=== PATIENT | female | born 1995 | race Caucasian/White ===

== ENCOUNTER → 2017-07-19 | Outpatient (CLI) | payer OTHER, MEDICAID ==
[~2017-07-19] MED LIST: ACE3 PO; ACE325 PO; ACEC5L PO; ALB0.5 INH; AMO250 PO; AMO400L PO; AMOX-559 PO; ATOM40CA7 PO; AUG500 PO; CEFU250T11 PO; CETI10CA8 PO; CLO5 PO; CLOB20TA PO; CLON-303 PO; CLON0.255 PO; CLONIPIN; CONCERTA PO; ESTR-28 PO; FLU20 PO; FLU60SYR30 IM ONLY; FLU60VIA21 IM ONLY; FLUO-201 PO; FLUO-202 PO; GENOTROPIN; HYDR28.426 TP; IRON18TA2 PO; LACO200T2 PO; LAM100 PO; LAMICTAL; LAMO25TA64 PO; LEV125 PO; LEVE-14 PO; LEVE100034 PO; LEVO175T42 PO; LEVO50TA80 PO; LEVO75TA73 PO; LEVOX; LEVOXYL; METH54TA12 PO; OND4 PO; PROZAC; RUFI400T2 PO; STRATERRA PO; ZINC30OI8 TP; [UNRECOGNIZED DRUG - CODE] PO; [UNRECOGNIZED DRUG - CODE] PO; [UNRECOGNIZED DRUG - OTHER] PO
[2017-07-19 16:58] LABS: PLATELET COUNT, AUTOMATED 298 K/uL (150-450)
== END ==
LOC: LAB 13:49
PROVIDERS: ATTEND Nurse Practitioner Primary Care
DX: R71.8 Other abnormality of red blood cells (principal)
CPT/HCPCS: 36415; 82728; 83540; 83550; 85025

== ENCOUNTER 2017-08-07 22:44 | Emergency (ER) | payer OTHER, MEDICAID ==
--- NOTE | 2017-08-07 22:53 | ER Report ---
History and Physical Time Seen By MD: 22:50 HPI/ROS CHIEF COMPLAINT: breathing fast, cough HISTORY OF PRESENT ILLNESS: Pt started with a cough around lunch today that was loose. This evening breathing was more rapid. PT did have surgery on Monday were here vagus nerve stimulator had to be replaced due to poor battery. PT was intubated for the surgery per parents. Pt has been doing well until today. PT has felt warmer tonight. no chills. no runny nose Hx limited due to pts delayed cognitive ds REVIEW OF SYSTEMS: Constitutional: ? fever, no chills. Eyes: No discharge. ENT: No sore throat. Respiratory: + cough, no shortness of breath. Gastrointestinal: no vomiting. Genitourinary: No hematuria. Musculoskeletal: No back pain. Skin: No rashes. Allergies: Coded Allergies: No Known Drug Allergies (Verified , 08/07/17) Home Meds Active Scripts Amoxicillin/Pot Clav 875-125 Mg Tab (AUGMENTIN 875-125 TABLET) 1 Each Tablet, 1 TAB PO Q12H, #14 TAB Prov:JIM DENG DO 08/08/17 Methylphenidate Hcl (CONCERTA) 54 Mg Tab.er.24, 1 TAB PO QAM, #90 TAB 0 Refills Prov:MATEUSZ PERRY DNP [facility] 07/25/17 Atomoxetine Hcl (STRATTERA) 40 Mg Capsule, 1 TAB PO DAILY, #90 CAPSULE 1 Refill Prov:MATEUSZ PERRY DNP, [facility]- 02/22/17 Fluoxetine Hcl (PROZAC) 10 Mg Capsule, 3 TAB PO QAM, #270 CAPSULE 1 Refill Prov:MATEUSZ PERRY DNP [facility] 02/22/17 Reported Medications Cetirizine Hcl (ZYRTEC) 10 Mg Capsule, 10 MG PO QDAY, CAPSULE 01/31/17 Estrogen,Con/M-Progest Acet (PREMPHASE 0.625-5 MG TABLET) 1 Each Tablet, 1 EACH PO 01/31/17 Levothyroxine Sodium (LEVOTHYROXINE SODIUM) 75 Mcg Tablet, 62.5 MCG PO QDAY, TAB 01/31/17 Levetiracetam (KEPPRA) 500 Mg Tablet, 1 TAB PO BID, TAB 01/27/16 Clonazepam (CLONAZEPAM) 1 Mg Tablet, 1 TAB PO BID, TAB 1 tab PO BID and PRN 01/27/16 [Hempoil] No Conflict Check, 150 MG PO BID 03/17/15 Zonisamide (Zonegran) 100 Mg Capsule, 300 MG PO BID, 0 Refills 04/21/11 Lamotrigine (Lamictal) 100 Mg Tab, 150 MG PO BID, #20 0 Refills 04/21/11 Past Medical/Surgical History Pmhx: autism, adhd, seizures, bicuspid valve, hypothyroid, abnormal aortic root , turners syndrome Pshx: vagus nerve stimulator, TA, appy, bowel resection, hyster Reviewed Nurses Notes: Yes Old Medical Records Reviewed: Yes Hx Smoking: No Smoking Status: Never Smoker Exposure to Second Hand Smoke?: No Hx Substance Use Disorder: No Hx Alcohol Use: No Constitutional Vital Sign - Last 24 Hours 08/07/17 22:48 Pulse 120 Resp 40 B/P (MAP) 134/107 Pulse Ox 90 O2 Delivery Nasal Cannula Physical Exam General Appearance: The patient is alert, has no immediate need for airway protection and no signs of toxicity. Eyes: Pupils equal and round no pallor or injection, EOMI ENT: no pharyngeal erythema or exudates, Mucous membranes are moist Respiratory: There are no retractions, lungs are clear to auscultation. Cardiovascular: Regular rate and rhythm. pulses are equal and symmetrical Gastrointestinal: Abdomen is soft and non tender, no masses, bowel sounds normal, no guarding, no rigidity or rebound Neurological: Cranial nerves II-XII grossly intact, no sensory or motor loss Skin: Warm and dry, no rashes. Musculoskeletal: Neck is supple non tender, no vertebral tenderness Extremities are nontender, non swollen and have full range of motion. DIFFERENTIAL DIAGNOSIS: After history and physical exam differential diagnosis was considered for pneumonia, bronchitis, influenza Medical Decision Making Data Points Laboratory Hematology Test 08/07/17 23:10 Influenza Virus Type A (PCR) Negative (NEGATIVE) Influenza Virus Type B (PCR) Negative (NEGATIVE) Chemistry Test 08/07/17 23:10 Influenza Virus Type A (PCR) Negative (NEGATIVE) Influenza Virus Type B (PCR) Negative (NEGATIVE) EKG/Imaging Imaging rml/rll infiltrate ED Course/Re-evaluation ED Course check xray and influenza 08/08/2017 12:54:48 am influenza is negative. PTs does have r sided pneumonia. Pt had surgery on Monday so I am not sure if she may have aspirated with intubation. PTs saturation is staying above 90%. Mother feels comfortable taking patient home. will d/c on abx with close follow up. Will treat as possible aspiration pneumonia and will use augmentin which pt has had before without any complications. Family states they will follow up this week with pcp Decision to Disposition Date: Aug 08, 2017 Decision to Disposition Time: 00:58 Depart Departure Latest Vital Signs Vital Signs Date Time Temp Pulse Resp B/P (MAP) Pulse Ox O2 Delivery O2 Flow Rate FiO2 08/07/17 22:48 120 40 134/107 90 Nasal Cannula Impression: Primary Impression: Aspiration pneumonia Condition: Improved Disposition: HOME OR SELF-CARE Referrals: MATEUSZ PERRY DNP, [facility] (PCP) 2 Days New Scripts Amoxicillin/Pot Clav 875-125 Mg Tab (AUGMENTIN 875-125 TABLET) 1 Each Tablet 1 TAB PO Q12H, #14 TAB Prov: JIM DENG DO 08/08/17 Patient Instructions: Aspiration Pneumonia (GEN) Additional Instructions: Your xray today shows infection in your right lung. We are starting you on antibiotics twice a day until finished. Follow up with your family doctor in 48 hours. If symptoms worsen prior to seeing your doctor then please return to emergency department. Problem Qualifiers Primary Impression: Aspiration pneumonia Aspiration pneumonia type: unspecified Laterality: right Lung location: middle lobe of lung Qualified Codes: J69.0 - Pneumonitis due to inhalation of food and vomit JIM DENG DO Aug 07, 2017 22:53
--- NOTE | 2017-08-08 00:27 | RADIOLOGY IMAGING REPORT ---
[place] [facility] [place] NAME: Aury Mckeon : 1995 MR: [id number] V: [id number] EXAM DATE: ORDERING PHYSICIAN: JIM DENG TECHNOLOGIST: Location: [facility] Patient: Aury Mckeon : 1995 Visit/Account:[id number] Date of Sevice: 08/07/2017 CHEST PA AND LATERAL 08/07/2017 11:06 PM. INDICATION: Cough, shortness of breath. cough, sob COMPARISON: 1028 and 17. FINDINGS: Lungs are well-expanded. There is vague patchy opacification over the right mid and lower lung. No pneumothorax or pleural effusion. Pulmonary vasculature is unremarkable. Heart size is no rmal. Probable vagal nerve stimulator, unchanged. IMPRESSION: Right mid and lower lung opacification suspicious for pneumonia in the appropriate settin g. Report Dictated By: Ruiz Acosta MD at 08/08/2017 12:21 AM Report E-Signed By: Ruiz Acosta MD at 08/08/2017 12:23 AM WSN:[id number]
[2017-08-08] MEDS ORDERED: AMOX/CLAV 875 MG TAB PO ONE (00:55)
[2017-08-08 01:00] VITALS: BP 106/80
[2017-08-08] MEDS ORDERED: AMOX-559 PO (01:02)
== END 2017-08-08 01:20 | disposition home or self-care (01) ==
LOC: ER 23:02
DX: J69.0 Pneumonitis due to inhalation of food and vomit (principal)
CPT/HCPCS: 71046; 87502; 99283

== ENCOUNTER → 2017-09-19 | Outpatient (CLI) | payer OTHER, MEDICAID ==
[2017-09-19 14:47] LABS: PLATELET COUNT, AUTOMATED 329 K/uL (150-450)
== END ==
LOC: LAB 14:21
PROVIDERS: ATTEND Nurse Practitioner Primary Care
DX: R19.7 Diarrhea, unspecified (principal); R53.83 Other fatigue
CPT/HCPCS: 36415; 81001; 82040; 82247; 82310; 82374; 82435; 82565; 82947; 84075; 84132; 84155; 84295; 84443; 84450; 84460; 84520; 85025; 86308

== ENCOUNTER → 2018-04-11 | Outpatient (CLI) | payer OTHER, MEDICAID ==
[~2018-04-11] MED LIST changes: -CLON-303 PO; +CLON-333 PO; +FLU60VIA41 IM
[2018-04-11 10:45] LABS: PLATELET COUNT, AUTOMATED 287 K/uL (150-450)
--- NOTE | 2018-04-11 12:04 | RADIOLOGY IMAGING REPORT ---
FACILITY: [facility] PATIENT NAME: Aury Mckeon : 1995 MR: [id number] V: [id number] EXAM DATE: ORDERING PHYSICIAN: MATEUSZ PERRY TECHNOLOGIST: Location[place] [facility] [place] Patient: Aury Mckeon : 1995 Visit/Account:[id number] Date of Sevice: 04/11/2018 Exam type: CHEST PA AND LAT History: Increased frequency of seizures, fatigue Comparison: August 08, 2017. Findings: The lungs are free of acute effusions, infiltrates or edema. A battery pack projects over the medial aspect left mid thorax obscuring the underlying lung. Cardiac silhouette is normal. There is a lar ge air-fluid level in the stomach. IMPRESSION: 1. No acute cardiopulmonary process is seen Incidental note of a large air-fluid level in the stomach Report Dictated By: Amy Peterson MD at 04/11/2018 11:58 AM Report E-Signed By: Amy Peterson MD at 04/11/2018 11:59 AM WSN:[id number]
== END ==
LOC: LAB 09:42
PROVIDERS: ATTEND Nurse Practitioner Primary Care
DX: R56.9 Unspecified convulsions (principal)
CPT/HCPCS: 36415; 71046; 81001; 82040; 82247; 82310; 82374; 82435; 82565; 82947; 84075; 84132; 84155; 84295; 84443; 84450; 84460; 84520; 85025; 86663; 86664; 86665

== ENCOUNTER → 2018-06-22 | Outpatient (CLI) | payer OTHER, MEDICAID ==
[~2018-06-22] MED LIST changes: +AZIT-1 PO; +LEVO750T27 PO
--- NOTE | 2018-06-22 16:51 | RADIOLOGY IMAGING REPORT ---
FACILITY: [facility] PATIENT NAME: Aury Mckeon : 1995 MR: [id number] V: [id number] EXAM DATE: ORDERING PHYSICIAN: MATEUSZ PERRY TECHNOLOGIST: [place] [facility] [place]: Aury Mckeon : 1995 Visit/Account:[id number] Date of Sevice: 06/22/2018 2 VIEWS CHEST INDICATION: Right lower lobe pneumonia. COMPARISON: 04/11/2018. FINDINGS: Cardiomediastinal silhouette and pulmonary vessels within normal limits. Faint haziness in the right lower lobe. The remaining lung saini are clear. There is no pneumothorax or pleural effusion. No nodule. Upper abdomen is unremarkable with some contrast seen in the urinary system. No acute bony abnormalit y. Electronic device seen overlying the left chest. IMPRESSION: 1. Faint haziness in the right lower lobe could represent a early pneumonia or a resolving pneumonia. Report Dictated By: Austin Moon at 06/22/2018 4:45 PM Report E-Signed By: Austin Moon at 06/22/2018 4:47 PM WSN:[id number]
== END ==
LOC: RAD 16:17
PROVIDERS: ATTEND Nurse Practitioner Primary Care
DX: J18.1 Lobar pneumonia, unspecified organism (principal)
CPT/HCPCS: 71046

== ENCOUNTER 2018-07-24 21:07 | Emergency (ER) | payer OTHER, MEDICAID ==
[2018-07-24] MEDS ORDERED: QUET25TA30 PO (21:19)
[2018-07-24] MEDS ORDERED: ALBUTEROL/IPRATROPIUM 3 ML NEB NEB ONE (21:35)
--- NOTE | 2018-07-24 22:01 | ER Report ---
History and Physical Time Seen By MD: 21:15 Hx. of Stated Complaint: STARTED NO FEELING WELL ON MONDAY, GETTING WORSE LAST COUPLE DAYS. YELLOW DISCHARGE FROM NOSE, RATTLY COUGH, NASAL FLARING/RETRACTIONS, FEVER OF 100 AT HOME HPI/ROS CHIEF COMPLAINT: Difficulty breathing HISTORY OF PRESENT ILLNESS: 22-year-old female history of developmental delay and seizures, history of pneumonia 2-3 this year, resents with 2 days of difficulty breathing, coughing that is nonproductive, temperature max of 100F, URI symptoms, brought in by mother for rapid breathing and nasal flaring. Patient has had home neb with minimal relief. She was last on antibiotics one month ago and was placed on Levaquin for 5 days which had resolved her pneumonia at that time. She has not had recent hospitalizations. She has not been placed on steroids in the past. She has had a flu shot. She has no nausea, vomiting, UTI symptoms REVIEW OF SYSTEMS: Constitutional: borderline elevated temp Eyes: No discharge. ENT: clear rhinitis Cardiovascular: no chest pain Respiratory: above, tachypnea Gastrointestinal: No abdominal pain, no vomiting. Genitourinary: no dsyuria Musculoskeletal: No back pain. Skin: No rashes. Neurological: No headache. Remainder of the 14 system rev: Yes Allergies: Coded Allergies: No Known Drug Allergies (Verified , 07/24/18) Home Meds Active Scripts Methylphenidate Hcl (CONCERTA) 54 Mg Tab.er.24, 1 TAB PO QAM, #30 TAB 0 Refills Prov:MATEUSZ PERRY DNP, [facility] 06/29/18 Levofloxacin 750 Mg Tab (LEVOFLOXACIN 750 MG TAB) 750 Mg Tablet, 1 TAB PO QDAY for 5 Days, #5 TAB 0 Refills Prov:MATEUSZ PERRY DNP, FNP-[facility] 06/22/18 Fluoxetine Hcl (PROZAC) 10 Mg Capsule, 4 TAB PO QAM, #360 CAPSULE 4 Refills Prov:MATEUSZ PERRY DNP, [facility] 06/04/18 Atomoxetine Hcl (STRATTERA) 40 Mg Capsule, 1 TAB PO DAILY, #90 CAPSULE 1 Refill Prov:MATEUSZ PERRY DNP, [facility]NP-[facility] 03/09/18 Reported Medications Quetiapine Fumarate (SEROQUEL) 25 Mg Tablet, 25 MG PO 07/24/18 Cetirizine Hcl (ZYRTEC) 10 Mg Capsule, 10 MG PO QDAY, CAPSULE 01/31/17 Estrogen,Con/M-Progest Acet (PREMPHASE 0.625-5 MG TABLET) 1 Each Tablet, 1 EACH PO 01/31/17 Levothyroxine Sodium (LEVOTHYROXINE SODIUM) 75 Mcg Tablet, 62.5 MCG PO QDAY, TAB 01/31/17 Levetiracetam (KEPPRA) 500 Mg Tablet, 1 TAB PO BID, TAB 01/27/16 Clonazepam (CLONAZEPAM) 1 Mg Tablet, 1 TAB PO BID, TAB 1 tab PO BID and PRN 01/27/16 [Hempoil] No Conflict Check, 150 MG PO BID 03/17/15 Zonisamide (Zonegran) 100 Mg Capsule, 300 MG PO BID, 0 Refills 04/21/11 Lamotrigine (Lamictal) 100 Mg Tab, 150 MG PO BID, #20 0 Refills 04/21/11 Reviewed Nurses Notes: Yes Old Medical Records Reviewed: Yes Hx Smoking: No Smoking Status: Never Smoker Exposure to Second Hand Smoke?: No Hx Substance Use Disorder: No Hx Alcohol Use: No Constitutional Vital Sign - Last 24 Hours 07/24/18 07/24/18 07/24/18 07/24/18 21:07 21:11 21:12 21:30 Pulse ??? 104 Resp 26 B/P (MAP) 139/117 139/117 (124) 117/92 (100) Pulse Ox 85 O2 Delivery Room Air 07/24/18 07/24/18 07/24/18 07/24/18 21:37 21:45 21:45 21:57 Pulse 104 104 114 Resp 60 60 Pulse Ox 88 88 O2 Delivery Room Air 07/24/18 07/24/18 07/24/18 22:07 22:30 22:37 Pulse 70 99 B/P (MAP) 120/100 (107) 117/87 (97) Pulse Ox 83 93 Physical Exam General Appearance: The patient is alert, has no immediate need for airway protection and no signs of toxicity. Eyes: Pupils equal and round no pallor or injection. ENT, Mouth: Mucous membranes are moist. Respiratory: tachypnea to 50, nasal flaring, ronchi with cough, decreased lung sounds at bases Cardiovascular: borderline tachycardia Gastrointestinal: abdomen is soft, nontender Neurological: interactive, cooperates with exam, neuro status at baseline per mother Skin: Warm and dry, no rashes. Musculoskeletal: Neck is supple non tender. Extremities are nontender, nonswollen and have full range of motion. DIFFERENTIAL DIAGNOSIS: After history and physical exam differential diagnosis was considered for pneumonia, sepsis, reactive airway disease, influenza or other emergent etiology of symptoms. Medical Decision Making Data Points Laboratory Hematology Test 07/24/18 21:55 Influenza Virus Type A (PCR) Positive (NEGATIVE) Influenza Virus Type B (PCR) Negative (NEGATIVE) Chemistry Test 07/24/18 21:55 Influenza Virus Type A (PCR) Positive (NEGATIVE) Influenza Virus Type B (PCR) Negative (NEGATIVE) ED Course/Re-evaluation ED Course 22-year-old female presents with URI symptoms, cough, tachypnea, borderline sats. After initial neb utilizer treatment she is improved with clear lungs on repeat assessment. X-rays negative for pneumonia. Flu was positive. I talked with mother about Riss and benefits of Tamiflu and mother declined which is reasonable. Patient is improved on reassessment with sats of 95% though continued tachypnea but without nasal flaring. I discussed the potential for admission versus discharge. Mother is comfortable watching at home and will return if she is worse. Decision to Disposition Date: Jul 24, 2018 Decision to Disposition Time: 11:00 Depart Departure Latest Vital Signs Vital Signs Date Time Temp Pulse Resp B/P (MAP) Pulse Ox O2 Delivery O2 Flow Rate FiO2 07/24/18 22:37 99 93 07/24/18 22:30 117/87 (97) 07/24/18 21:57 60 07/24/18 21:45 Room Air Impression: Primary Impression: Influenza A Condition: Improved Disposition: HOME OR SELF-CARE Referrals: MATEUSZ PERRY DNP, [facility] (PCP) 2 Days Patient Instructions: Influenza (DC) Additional Instructions: As we discussed, it is reasonable to adminsiter home nebulizer treatments every 2-4 hours for cough and difficulty breathing. Please return immediately for worsening difficulty breathing, not tolerating fluids, appearing worse, or any concerns. SPENCER LOCK MD Jul 24, 2018 22:01
[2018-07-24 22:30] VITALS: BP 117/87
--- NOTE | 2018-07-24 22:42 | RADIOLOGY IMAGING REPORT ---
FACILITY: [facility] - [place] PATIENT NAME: Aury Mckeon : 1995 MR: [id number] V: [id number] EXAM DATE: [id number] ORDERING PHYSICIAN: SPENCER LOCK TECHNOLOGIST: Location: [facility] - [place] Patient: Aury Mckeon : 1995 Visit/Account:[id number] Date of Sevice: 07/24/2018 EXAMINATION: Chest radiographs 2 views HISTORY: Dyspnea. History of pneumonia. COMPARISON: 06/22/2018. FINDINGS: PA and lateral views of the chest are submitted. Lines/tubes: Implant left vagal nerve stimulator. Lungs/pleura: No focal consolidation or pleural effusion. Pulmonary vascularity is within normal echeverria its. No evidence of pneumothorax. Heart: Normal heart size. Mediastinum: Stable mediastinal contours. Bony structures/body wall: Negative. IMPRESSION: No radiographic evidence of acute cardiopulmonary disease. Report Dictated By: Mich Carson MD at 07/24/2018 10:36 PM Report E-Signed By: Mich Carson MD at 07/24/2018 10:39 PM WSN:[id number]
== END 2018-07-24 23:06 | disposition home or self-care (01) ==
LOC: ER 21:21
DX: J11.1 Influenza due to unidentified influenza virus with other respiratory manifestations (principal)
CPT/HCPCS: 71046; 87502; 94640; 99283; J7620

== ENCOUNTER 2018-07-31 09:41 | Inpatient (IN) | payer OTHER, MEDICAID ==
[~2018-07-31 09:41] MED LIST changes: +QUET25TA30 PO
--- NOTE | 2018-07-31 10:08 | ER Report ---
History and Physical Time Seen By MD: 10:08 Hx. of Stated Complaint: not feeling well HPI/ROS CHIEF COMPLAINT: not feeling well HISTORY OF PRESENT ILLNESS: This is a 22 year old female. She has developmental delay and Sidhu's syndrome. She has had a history of pneumonia a month ago and several episodes of aspiration pneumonia in the recent past. She was noted to have increased rate of breathing this morning which was shallow, and nasal flaring. Appeared to be uncomfortable. Based on congenital problems, non-verbal cues are what they watch for. Had been pulling on her ear as well. No known fevers or chills. Has had runny nose and some cough. Not participating in usual activities yesterday in school. Patient does not complain of pain when asked. REVIEW OF SYSTEMS: Unable to obtain Allergies: Coded Allergies: No Known Drug Allergies (Verified , 07/31/18) Home Meds Active Scripts Methylphenidate Hcl (CONCERTA) 54 Mg Tab.er.24, 1 TAB PO QAM, #30 TAB 0 Refills Prov:MATEUSZ PERRY DNP, [facility] 07/30/18 Fluoxetine Hcl (PROZAC) 10 Mg Capsule, 4 TAB PO QAM, #360 CAPSULE 4 Refills Prov:MATEUSZ PERRY DNP, [facility] 06/04/18 Atomoxetine Hcl (STRATTERA) 40 Mg Capsule, 1 TAB PO DAILY, #90 CAPSULE 1 Refill Prov:MATEUSZ PERRY DNP, [facility] 03/09/18 Reported Medications Quetiapine Fumarate (SEROQUEL) 25 Mg Tablet, 25 MG PO HS 07/24/18 Cetirizine Hcl (ZYRTEC) 10 Mg Capsule, 10 MG PO HS, CAPSULE 01/31/17 Estrogen,Con/M-Progest Acet (PREMPHASE 0.625-5 MG TABLET) 1 Each Tablet, 1 EACH PO HS 01/31/17 Levothyroxine Sodium (LEVOTHYROXINE SODIUM) 75 Mcg Tablet, 62.5 MCG PO HS, TAB 01/31/17 Levetiracetam (KEPPRA) 500 Mg Tablet, 1 TAB PO BID, TAB 01/27/16 Clonazepam (CLONAZEPAM) 1 Mg Tablet, 1 TAB PO BID, TAB 1 tab PO BID and PRN 01/27/16 [Hempoil] No Conflict Check, 150 MG PO BID 03/17/15 Zonisamide (Zonegran) 100 Mg Capsule, 300 MG PO BID, 0 Refills 04/21/11 Lamotrigine (Lamictal) 100 Mg Tab, 150 MG PO BID, #20 0 Refills 04/21/11 Discontinued Scripts Levofloxacin 750 Mg Tab (LEVOFLOXACIN 750 MG TAB) 750 Mg Tablet, 1 TAB PO QDAY for 5 Days, #5 TAB 0 Refills Prov:MATEUSZ PERRY DNP, [facility] 06/22/18 Reviewed Nurses Notes: Yes Hx Smoking: No Smoking Status: Never Smoker Exposure to Second Hand Smoke?: No Hx Substance Use Disorder: No Hx Alcohol Use: No Constitutional Vital Sign - Last 24 Hours 07/31/18 07/31/18 07/31/18 07/31/18 09:48 09:53 10:00 10:11 Temp 98.3 Pulse 109 107 Resp 18 B/P (MAP) 118/82 (94) 118/82 106/82 (90) Pulse Ox 97 95 O2 Delivery Room Air 07/31/18 07/31/18 07/31/18 07/31/18 10:30 10:41 11:00 11:05 Pulse 99 110 B/P (MAP) 114/85 (95) 114/85 (95) Pulse Ox 94 93 07/31/18 07/31/18 07/31/18 07/31/18 11:30 11:35 12:00 12:05 Pulse 98 108 B/P (MAP) 117/95 (102) 109/75 (86) Pulse Ox 100 94 07/31/18 07/31/18 07/31/18 07/31/18 12:30 12:35 12:40 13:00 Pulse 107 108 B/P (MAP) 118/80 (93) 42/34 (37) Pulse Ox 96 94 Physical Exam General Appearance: Alert, No acute distress. Eyes: Pupils are equal, round. No pallor, injection or icterus. ENT: Mucous membranes are moist. Normal oral mucosa. Posterior oropharynx is normal. Rhinorrhea. Right TM and canal are normal. Left canal with cerumen impaction, cannot see TM. Neck: Supple and non tender. Respiratory: Lungs diminished in the right lower lobe. No rales or wheezing noted. There are no retractions or accessory muscle use. No nasal flaring. Cardiovascular: Regular rate and rhythm. Normal peripheral perfusion. Gastrointestinal: Abdomen is soft and non tender. Nondistended. Normal active bowel sounds. Neurological: Alert and oriented x3. Skin: Warm and dry. Musculoskeletal: Extremities are nontender. Full range of motion. DIFFERENTIAL DIAGNOSIS: After history and physical exam, differential diagnosis was considered for concern for breathing in a patient with congenital developmental problems, with concern for recurrent pneumonia or other respiratory problem. Medical Decision Making Data Points Result Diagram: 07/31/18 1156 07/31/18 1156 Laboratory Hematology Test 07/31/18 11:08 07/31/18 11:56 Influenza Virus Type A (PCR) Positive (NEGATIVE) Influenza Virus Type B (PCR) Negative (NEGATIVE) Red Blood Count 4.67 M/uL (4.17-5.56) Mean Corpuscular Volume 80.2 fL (80.0-96.0) Mean Corpuscular Hemoglobin 26.0 pg (26.0-33.0) Mean Corpuscular Hemoglobin Concent 32.4 g/dL (32.0-36.0) Red Cell Distribution Width 13.0 % (11.5-14.5) Mean Platelet Volume 7.0 fL (7.2-11.1) Neutrophils (%) (Auto) 60.1 % (39.4-72.5) Lymphocytes (%) (Auto) 29.5 % (17.6-49.6) Monocytes (%) (Auto) 7.4 % (4.1-12.4) Eosinophils (%) (Auto) 2.6 % (0.4-6.7) Basophils (%) (Auto) 0.4 % (0.3-1.4) Nucleated RBC Relative Count (auto) 0.0 /100WBC Neutrophils # (Auto) 4.3 K/uL (2.0-7.4) Lymphocytes # (Auto) 2.1 K/uL (1.3-3.6) Monocytes # (Auto) 0.5 K/uL (0.3-1.0) Eosinophils # (Auto) 0.2 K/uL (0.0-0.5) Basophils # (Auto) 0.0 K/uL (0.0-0.1) Nucleated RBC Absolute Count (auto) 0.00 K/uL Peripheral Blood Smear No Y/N Sodium Level 133 mmol/L (137-145) Potassium Level 4.4 mmol/L (3.5-5.0) Chloride Level 109 mmol/L (98-107) Carbon Dioxide Level 21 mmol/L (22-31) Blood Urea Nitrogen 16 mg/dl (7-18) Creatinine 0.50 mg/dl (0.52-1.04) Glomerular Filtration Rate Calc > 60.0 Random Glucose 91 mg/dl (75-110) Lactate 1.4 mmol/L (0.7-2.1) Calcium Level 9.5 mg/dl (8.4-10.2) Total Bilirubin 0.3 mg/dl (0.2-1.3) Aspartate Amino Transf (AST/SGOT) 18 U/L (0-35) Alanine Aminotransferase (ALT/SGPT) 6 U/L (0-56) Alkaline Phosphatase 126 U/L (0-126) Total Protein 7.5 g/dl (6.3-8.2) Albumin 3.8 g/dl (3.5-5.0) Chemistry Test 07/31/18 11:08 07/31/18 11:56 Influenza Virus Type A (PCR) Positive (NEGATIVE) Influenza Virus Type B (PCR) Negative (NEGATIVE) White Blood Count 7.1 k/uL (4.5-11.0) Red Blood Count 4.67 M/uL (4.17-5.56) Hemoglobin 12.2 g/dL (12.0-16.0) Hematocrit 37.5 % (34.0-47.0) Mean Corpuscular Volume 80.2 fL (80.0-96.0) Mean Corpuscular Hemoglobin 26.0 pg (26.0-33.0) Mean Corpuscular Hemoglobin Concent 32.4 g/dL (32.0-36.0) Red Cell Distribution Width 13.0 % (11.5-14.5) Platelet Count 403 K/uL (150-450) Mean Platelet Volume 7.0 fL (7.2-11.1) Neutrophils (%) (Auto) 60.1 % (39.4-72.5) Lymphocytes (%) (Auto) 29.5 % (17.6-49.6) Monocytes (%) (Auto) 7.4 % (4.1-12.4) Eosinophils (%) (Auto) 2.6 % (0.4-6.7) Basophils (%) (Auto) 0.4 % (0.3-1.4) Nucleated RBC Relative Count (auto) 0.0 /100WBC Neutrophils # (Auto) 4.3 K/uL (2.0-7.4) Lymphocytes # (Auto) 2.1 K/uL (1.3-3.6) Monocytes # (Auto) 0.5 K/uL (0.3-1.0) Eosinophils # (Auto) 0.2 K/uL (0.0-0.5) Basophils # (Auto) 0.0 K/uL (0.0-0.1) Nucleated RBC Absolute Count (auto) 0.00 K/uL Peripheral Blood Smear No Y/N Glomerular Filtration Rate Calc > 60.0 Lactate 1.4 mmol/L (0.7-2.1) Calcium Level 9.5 mg/dl (8.4-10.2) Total Bilirubin 0.3 mg/dl (0.2-1.3) Aspartate Amino Transf (AST/SGOT) 18 U/L (0-35) Alanine Aminotransferase (ALT/SGPT) 6 U/L (0-56) Alkaline Phosphatase 126 U/L (0-126) Total Protein 7.5 g/dl (6.3-8.2) Albumin 3.8 g/dl (3.5-5.0) EKG/Imaging Imaging 2 VIEWS CHEST INDICATION: Dyspnea COMPARISON: Examination chest July 24 FINDINGS: Heart size within normal limits. There is multifocal interstitial and alveolar infiltrates, most notable within the right upper lobe. There is no pneumothorax or pleural effusion. Acute bony finding. Pack overlies the left hemithorax. IMPRESSION: 1. Diffuse multifocal infiltrates, most notable right upper lobe Report Dictated By: Kareem Avendaño MD at 07/31/2018 10:42 AM ED Course/Re-evaluation Clinical Indication for ER IV: Hydration, IV Access ED Course After initial evaluation, decided on chest x-ray and would attempt ear irrigation. Ear irrigation was not successful. Chest x-ray shows pneumonia as noted above. Discussed with Dr. Kearney who came to the ER to evaluate the patient. Started on IV Rocephin. Influenza positive, but was positive last week. Concern for recurrent aspiration as well. Admitted to [facility]. Decision to Disposition Date: Jul 31, 2018 Decision to Disposition Time: 12:39 Depart Departure Latest Vital Signs Vital Signs Date Time Temp Pulse Resp B/P (MAP) Pulse Ox O2 Delivery O2 Flow Rate FiO2 07/31/18 13:00 42/34 (37) 07/31/18 12:40 108 94 07/31/18 09:53 98.3 18 Room Air Impression: Primary Impression: Pneumonia Condition: Improved Disposition: HOME OR SELF-CARE Referrals: MATEUSZ PERRY DNP, [facility] ADMINISTRATIVE ASSISTANT[facility] (PCP) BALDOMERO ALEXIS MD Jul 31, 2018 10:08
--- NOTE | 2018-07-31 10:49 | RADIOLOGY IMAGING REPORT ---
[place] [facility] [place] NAME: Aury Mckeon : 1995 MR: [id number] V: [id number] EXAM DATE: ORDERING PHYSICIAN: BALDOMERO ALEXIS TECHNOLOGIST: [place] [facility] [place] : 1995 Visit/Account:[id number] Date of Sevice: 07/31/2018 2 VIEWS CHEST INDICATION: Dyspnea COMPARISON: Examination chest July 24 FINDINGS: Heart size within normal limits. There is multifocal interstitial and alveolar infiltrates, most notable within the right upper lobe. There is no pneumothorax or pleural effusion. Acute bony finding. Pack overlies the left hemithorax. IMPRESSION: 1. Diffuse multifocal infiltrates, most notable right upper lobe Report Dictated By: Kareem Avendaño MD at 07/31/2018 10:42 AM Report E-Signed By: Kareem Avendaño MD at 07/31/2018 10:43 AM WSN:[id number]
[2018-07-31 12:09] LABS: PLATELET COUNT, AUTOMATED 403 K/uL (150-450)
[2018-07-31] MEDS ORDERED: cefTRIAXone(*) 1 GM VIAL 1 GM in NS(*) 0.9% 100 ML ADDVANT BAG 100 ML IVPB ONE (13:05)
[2018-07-31] MEDS ORDERED: NS(*) 0.9% 1000 ML BAG 1,000 ML IV ONE (13:30)
[2018-07-31] MEDS ORDERED: FLUSH 10 ML SYR IVP PRN (13:30)
[2018-07-31] MEDS ORDERED: IBUPROFEN 200 MG TAB PO PRN (13:30)
[2018-07-31] MEDS ORDERED: ALBUTEROL 2.5 MG/3 ML NEB NEB PRN (13:30)
[2018-07-31 14:10] VITALS: BP 105/79
--- NOTE | 2018-07-31 14:17 | History & Physical ---
History of Present Illness History of Present Illness 22yo with a seizure d/o, arrington's syndrome and bicuspid aortic valve who was brought to the ER today for weakness and low energy. At the end of April 2018, patient was seen at urgent care with cold symptoms and treated with a Z- Terence. She was then treated for a sinus infection on 05/15/18 with Augmentin. On 06/22/18, a pneumonia was incidentally seen in the RLL by CTA to evaluate her bicuspid aortic valve, so was started on a 5 day course of Levofloxacin 750mg a day. On 07/24/18, she was seen in the ER for a couple of days of cough, low grade fever, coryza and nasal flaring. She was found to have influenza A and the mother decided that Tamiflu had too many risks for the benefits. Last night, she started having shallow breathing. Staff from school today noted that she was really tired and not herself, so was brought to the ER. She hasn't had a fever. She is eating well. She has had a wet cough intermittently since June, but it returned over the last couple of days. She doesn't have any f ocal complaints for me. History Problems: (1) Bicuspid aortic valve (2) Status post placement of VNS (vagus nerve stimulation) device (3) History of tonsillectomy and adenoidectomy (4) History of hysterectomy (5) History of appendectomy (6) History of bowel resection (7) Seizure Status: Chronic (8) Autism Status: Acute (9) Arrington's syndrome Status: Acute (10) ADHD (attention deficit hyperactivity disorder) Status: Chronic (11) Hypothyroidism Status: Acute (12) Development delay Status: Chronic Home Meds Active Scripts Methylphenidate Hcl (CONCERTA) 54 Mg Tab.er.24, 1 TAB PO QAM, #30 TAB 0 Refills Prov:MATEUSZ PERRY DNP, FNP-BC 07/30/18 Fluoxetine Hcl (PROZAC) 10 Mg Capsule, 4 TAB PO QAM, #360 CAPSULE 4 Refills Prov:MATEUSZ PERRY DNP, FNP-BC 06/04/18 Atomoxetine Hcl (STRATTERA) 40 Mg Capsule, 1 TAB PO DAILY, #90 CAPSULE 1 Refill Prov:MATEUSZ PERRY DNP, FNP-BC 03/09/18 Reported Medications Quetiapine Fumarate (SEROQUEL) 25 Mg Tablet, 25 MG PO HS 07/24/18 Cetirizine Hcl (ZYRTEC) 10 Mg Capsule, 10 MG PO HS, CAPSULE 01/31/17 Estrogen,Con/M-Progest Acet (PREMPHASE 0.625-5 MG TABLET) 1 Each Tablet, 1 EACH PO HS 01/31/17 Levothyroxine Sodium (LEVOTHYROXINE SODIUM) 75 Mcg Tablet, 62.5 MCG PO HS, TAB 01/31/17 Levetiracetam (KEPPRA) 500 Mg Tablet, 1 TAB PO BID, TAB 01/27/16 Clonazepam (CLONAZEPAM) 1 Mg Tablet, 1 TAB PO BID, TAB 1 tab PO BID and PRN 01/27/16 [Hempoil] No Conflict Check, 150 MG PO BID 03/17/15 Zonisamide (Zonegran) 100 Mg Capsule, 300 MG PO BID, 0 Refills 04/21/11 Lamotrigine (Lamictal) 100 Mg Tab, 150 MG PO BID, #20 0 Refills 04/21/11 Discontinued Scripts Levofloxacin 750 Mg Tab (LEVOFLOXACIN 750 MG TAB) 750 Mg Tablet, 1 TAB PO QDAY for 5 Days, #5 TAB 0 Refills Prov:MATEUSZ PERRY [facility] 06/22/18 Allergies: Coded Allergies: No Known Drug Allergies (Verified , 07/31/18) Patient History: Diabetes mellitus (DM) MOTHER FH: asthma BROTHER OR SISTER FH: breast cancer MOTHER FH: heart disease grandmother uncle uncle Irritable bowel syndrome BROTHER OR SISTER Other Social/Family Hx Lives with her Mom and Dad. She is a student. No tobacco or alcohol use. Hx Smoking: No Smoking Status: Never Smoker Exposure to Second Hand Smoke?: No Hx Alcohol Use: No Review of Systems All Systems Reviewed/Normal: Yes, Except as Noted Exam Vital Signs Vital Signs Date Time Temp Pulse Resp B/P (MAP) Pulse Ox O2 Delivery O2 Flow Rate FiO2 07/31/18 13:16 114/86 (95) 07/31/18 13:10 112 95 07/31/18 09:53 98.3 18 Room Air General Appearance: Alert, Awake, No Acute Distress Neuro: Other (Answers some questions, but doesn't really want to talk to me. Follows commands. ) Eyes: PERRLA ENT: Moist Mucous Membranes Cardiovascular: Other (Tachy regular) Respiratory: Clear to Auscultation GI: Abd Soft and Non-Tender Extremities: No Edema Integumentary: No Jaundice, No Cyanosis Medical Decision Making Data Points Result Diagram: 07/31/18 1156 07/31/18 1156 Item Value Date Time Neutrophils (%) (Auto) 60.1 % 07/31/18 1156 Lymphocytes (%) (Auto) 29.5 % 07/31/18 1156 Monocytes (%) (Auto) 7.4 % 07/31/18 1156 Eosinophils (%) (Auto) 2.6 % 07/31/18 1156 Lactate 1.4 mmol/L 07/31/18 1156 Influenza Virus Type A (PCR) Positive 07/31/18 1108 Influenza Virus Type A (PCR) Positive 07/24/18 2155 EKG / Imaging Imaging CXR - 1. Diffuse multifocal infiltrates, most notable right upper lobe Assessment and Plan Problems: (1) Pneumonia Status: Acute Assessment & Plan: She presented with one day of shallow breathing and decreased energy. She has a multifocal pneumonia that appears worse in the RUL. She is afebrile, on RA, and has a normal WBC. She is borderline tachycardic, but appears to have a baseline faster heart rate. For the about last 3 months, she has been on 3 courses antibiotics (Z-pac, Augmentin, and Levofloxacin) for URI, sinusitis and RLL pneumonia. She was diagnosed with influenza A last week, but didn't get treatment. She has been started on Rocephin and Doxycycline. Because of the recent right sided pneumonias, will ask ST to evaluate for aspiration. She will also be on Albuterol prn, vest treatment prn, and scheduled Mucinex. (2) Seizure Status: Chronic Assessment & Plan: Long standing and still having seizures regularly. Continue chronic Keppra, Lamictal, Zonegran, Clonazepam and Hemp Oil. She has a functioning vagal nerve stimulator. (3) ADHD (attention deficit hyperactivity disorder) Status: Chronic Assessment & Plan: Continue chronic Strattera and Concerta. (4) Development delay Status: Chronic Assessment & Plan: Continue chronic Prozac and Seroquel for behavior issues. Copies to: LYNETTE SEAY MD; MATEUSZ PERRY DNP, SAMPLE [employer]ER HAND-BC ; Venous Thromboembolism Antithrombotics Is Pt On Any Antithrombotics?: No Exam Sepsis Risk: No Definite Risk STANLEY PARR MD Jul 31, 2018 14:17
--- NOTE | 2018-07-31 15:35 | NUR ---
SPEECH THERAPY ASSESSMENT Bedside dysphagia evaluation summary. See full report for details. Overall, oral and pharyngeal phases of swallow appear grossly WFL for normal PO intake. However, given clinical presentation (including RLL pneumonia), a modified barium swallow study is recommended for objective analysis. Cannot r/o silent aspiration. Discussed results and recommendations with the patient, father, RN, and physician. In agreement with POC. MBSS scheduled with radiology for 08/01 @9am. RECOMMENDATIONS 1. Diet: Regular, thin liquids. 2. Medications: Whole, one at a time, ok with thin liquids. 3. Compensatory Techniques: regular oral hygiene, upright positioning during PO intake, slow rate of intake, take rest breaks for respiration if shortness of breath is observed, cease PO if pt appears to be seizing, provide lidded cups to avoid spills 4. Supervision with meals/snacks: provide tray set-up, assistance with feeding as needed, monitor diet tolerance and respiration
--- NOTE | 2018-07-31 15:41 | SLP BEDSIDE SWALLOW EVALUATION ---
SPEECH THERAPY ASSESSMENT Bedside dysphagia evaluation Ordering Physician: Jona Kearney MD Clinician: Ayana Cuellar MS, CCC-GUEST RELATIONS OFFICER Type of Assessment: Bedside Dysphagia Evaluation Patient: Aury Mckeon : [birth year], 22yo Evaluation Date: 07/31/2018 BACKGROUND The patient is a 22 year old female admitted to [facility] on 07/31/2018 with weakness and low energy. Pt with dx of seizure disorder, Sidhu's syndrome, and bicuspid aortic valve. Case hx from the past 3 months as follows: At the end of April 2018, patient was seen at urgent care with cold symptoms and treated with a Z-Terence. She was then treated for a sinus infection on 05/15/18 with Augmentin. On 06/22/18, a pneumonia was incidentally seen in the RLL during completion of CTA for evaluation of her bicuspid aortic valve. She was then started on a 5 day course of Levofloxacin. On 07/24/18, she was seen in the ER for a couple of days of cough, low grade fever, coryza and nasal flaring. She was found to have influenza A , mother decided that risks associated with Tamiflu outweighed the benefits. On the evening of 07/30/18, the pt started having shallow breathing. Staff from school noted that she was really tired and not herself, so was brought to the ER. She hasn't had a fever. She is eating well. She has had a wet cough intermittently since June, but it returned over the last couple of days. An ST consult was requested to analyze swallow status 2/2 concern for aspiration pneumonia with prolonged recovery and RLL infiltrate on CXR. Primary Medical Diagnosis: pneumonia Pmhx: seizure disorder, ADHD, Turners syndrome Pain Scale (0-10): 0 LOC / Participation: Alert and cooperative. Follows instructions: generally, very pleasant, friendly throughout assessment Orientation: A&O to self, family, location. Functional Communication Deficits impact swallow function/safety, or response to therapy: Yes DYSPHAGIA Sialorrhea: No Xerostomia: No Hygiene: WFL Supplemental Oxygen Use: No COPD Dx: No Pain with Swallow: None reported Pt seen at the bedside for clinical swallowing assessment. The pt was alert and participatory, father present throughout encounter. Oromotor exam was completed informally, no notable deviations observed. Difficult to analyze coordination of oral musculature due to difficulty with comprehension of instructions. Hyolaryngeal elevation and excursion subjectively adequate to palpation. Administered PO trials of thin liquids via cup and straw sip, pureed solids, and regular solids. The pt exhibited mildly disorganized mastication with trace, diffuse post-swallow residue of solid textures. Pharyngeally, audible, gulping swallow was consistently observed with thin liquids. The pt also exhibited a weak, delayed cough x2 following administration of liquid trials. However, weak cough was also observed prior to initiation of PO intake without clear correlation. No other overt signs of aspiration observed. Majority of thin liquid trials tolerated without cough response. Vocal quality consistently dry. Overall, oral and pharyngeal phases of swallow appear grossly WFL for normal PO intake. However, given clinical presentation (including RLL pneumonia), a modified barium swallow study is recommended for objective analysis. Cannot r/o silent aspiration. Discussed results and recommendations with the patient, father, RN, and physician. Additionally reviewed general aspiration precautions and dysphagia education. In agreement with POC. ST ASSESSMENT SUMMARY Aspiration Risk: Mild. Negative prognostic indicators include compromised respiratory status with RLL infiltrate. RULA: Level 6, modified [place] Speech Therapy Need Cannot r/o silent aspiration. Skilled ST interventions continue to be recommended for completion of an objective modified barium swallow study RECOMMENDATIONS 1. Diet: Regular, thin liquids. 2. Medications: Whole, one at a time, ok with thin liquids. 3. Compensatory Techniques: regular oral hygiene, upright positioning during PO intake, slow rate of intake, take rest breaks for respiration if shortness of breath is observed, cease PO if pt appears to be seizing, provide lidded cups to avoid spills 4. Supervision with meals/snacks: provide tray set-up, assist with feeding as needed, monitor diet tolerance and respiration Prognosis: Good. Strong family support. POC 1. The patient will participate in a modified barium swallow study to objectively analyze oropharyngeal swallow and assist in establishing recommendations for potential diet modification needs, compensatory strategies, and maneuvers to support safe tolerance of least restrictive diet with minimized risk for respiratory compromise. Thank you for this referral. Ayana Cuellar M.S., [facility]-[employer] RELATIONS OFFICER Speech Therapist [*] FERNY
[2018-07-31 19:32] VITALS: BP 112/68
[2018-07-31] MEDS ORDERED: levETIRAcetam 500 MG TAB PO SCH (21:00)
[2018-07-31] MEDS: PATIENT'S OWN MED PO SCH ×2 (21:00→21:34)
[2018-07-31] MEDS: LEVOTHYROXINE SOD 0.075 MG TAB PO SCH (21:32)
[2018-07-31] MEDS: CETIRIZINE HCL 10 MG TAB PO SCH (21:32)
[2018-07-31] MEDS: guaiFENesin 600 MG TABCR PO SCH (21:32)
[2018-07-31] MEDS: levETIRAcetam 500 MG TAB PO SCH (21:33)
[2018-07-31] MEDS: clonazePAM 1 MG TAB PO SCH (21:33)
[2018-07-31] MEDS: lamoTRIgine 100 MG TAB PO SCH (21:33)
[2018-07-31] MEDS: ESTROGENS CONJUGATED PO SCH (21:34)
[2018-07-31] MEDS: MEDROXYPROGESTERONE PO SCH (21:34)
[2018-07-31] MEDS: ZONISAMIDE 100 MG CAP PO SCH (21:35)
[2018-07-31] MEDS: DOXYCYCLINE HYCL 100 MG VIAL 100 MG in NS(*) 0.9% 250 ML BAG 250 ML IV SCH (21:44)
[2018-08-01 06:15] LABS: PLATELET COUNT, AUTOMATED 401 K/uL (150-450)
[2018-08-01] MEDS: PATIENT'S OWN MED PO SCH ×2 (09:00→20:56)
[2018-08-01] MEDS ORDERED: BARIUM SULFATE 240 ML ORAL SUS (NECTAR) ONE (09:18)
[2018-08-01] MEDS ORDERED: BARIUM SULFATE 148 GM POWDER ONE (09:19)
[2018-08-01] MEDS ORDERED: NS(*) 0.9% 1000 ML BAG 1,000 ML ONE (09:27)
[2018-08-01 09:42] VITALS: BP 110/70
[2018-08-01] MEDS: DOXYCYCLINE HYCL 100 MG VIAL 100 MG in NS(*) 0.9% 250 ML BAG 250 ML IV SCH (09:45)
[2018-08-01] MEDS: levETIRAcetam 500 MG TAB PO SCH ×2 (09:46→20:42)
[2018-08-01] MEDS: clonazePAM 1 MG TAB PO SCH ×2 (09:46→20:40)
[2018-08-01] MEDS: FLUoxetine HCL 20 MG CAP PO SCH (09:46)
[2018-08-01] MEDS: guaiFENesin 600 MG TABCR PO SCH ×2 (09:46→20:42)
[2018-08-01] MEDS: lamoTRIgine 100 MG TAB PO SCH ×2 (09:47→20:44)
[2018-08-01] MEDS: METHYLPHENIDATE 27 MG TABER PO SCH (09:47)
[2018-08-01] MEDS: ATOMOXETINE 40 MG CAP PO SCH ×2 (09:57→20:39)
[2018-08-01] MEDS: ZONISAMIDE 100 MG CAP PO SCH ×2 (09:57→20:44)
--- NOTE | 2018-08-01 11:29 | NUR ---
SPEECH THERAPY IMPRESSION MBSS complete. See full report for details. Overall, oral and pharyngeal phases of swallow are grossly WFL for normal PO intake. No aspiration or laryngeal penetration was witnessed. Radiologist endorsed reduced esophageal peristalsis. A GI consult is recommended. The pt may be at elevated risk for reflux aspiration. Discussed results and recs with the pt, RN, and father. Further ST interventions are not indicated for dysphagia. RECOMMENDATIONS 1. Diet: Regular, thin liquids. 2. Medications: Whole, one at a time, ok with thin liquids. 3. Compensatory Techniques: regular oral hygiene, upright positioning during PO intake, slow rate of intake, take rest breaks for respiration if shortness of breath is observed, cease PO if pt appears to be seizing, provide lidded cups to avoid spills 4. Supervision with meals/snacks: provide tray set-up, assistance with feeding as needed, monitor diet tolerance and respiration 5. GI referal
--- NOTE | 2018-08-01 11:54 | SLP MODIFIED BARIUM SWALLOW ---
MODIFIED BARIUM SWALLOW STUDY REPORT Ordering Provider: Jona Kearney MD Clinician: Ayana Cuellar MS, CCC-BINDER SELECTOR [place] [facility] [place] Patient: Aury Mckeon : [birth year], 22yo Evaluation Date: 08/01/2018 BACKGROUND The patient is a 22 year old female admitted to [facility] on 07/31/2018 with weakness and low energy. She was referred for a bedside clinical swallow assessment due to concern for aspiration pneumonia with RLL infiltrate on CXR. Inconsistent, delayed cough response was observed at the bedside following administration of thin liquid trials. Given clinical presentation (including RLL pneumonia and prolonged recovery), a modified barium swallow study was recommended for objective analysis of oropharyngeal swallow function to rule out silent aspiration ASSESSMENT Diagnosis: pneumonia Past Medical Hx: seizure disorder, Turners syndrome Pain Scale (0-10): 0 LOC / Participation: Alert and cooperative. Follows instructions: generally Orientation: A&O to self, family, location. Functional Communication Deficits impact swallow function/safety, or response to therapy: Yes Sialorrhea: No Xerostomia: No Hygiene: WFL Supplemental Oxygen Use: No COPD Dx: No Pain with Swallow: None reported Oral mechanism examination: no notable deviations. Difficult to analyze coordination of oral musculature due to decreased comprehension of instructions Overall impression: mild oral and suspected esophageal dysphagia. In conjunction with radiology, the pt was seated in the lateral view and analyzed with trials of the following consistencies: thin liquids via cup and straw sip, pureed solids, mechanically altered solids, regular solids, and a 1cm barium pill paired with thin liquids. Pt presented with mild oral phase dysphagia characterized by mildly disorganized mastication and oral bolus holding. Although bolus breakdown was somewhat disorganized, the pt was able to clear the oral cavity with single swallow and safely clear contents through the pharynx. Oral bolus holding occurred for 2-3 seconds prior to initiating pharyngeal phase with trials of solids and liquids. Despite oral holding, the pt exhibited good bolus control without any posterior, premature loss of material. Pharyngeally, swallow onset was timely with complete pharyngeal clearance and complete closure of the laryngeal vestibule. No penetration or aspiration was witnessed. The cervical and thoracic esophagus were visualized at various intervals throughout the study. Radiologist endorsed reduced esophageal peristalsis, resulting in slow passage of material into the stomach. The pt may be at an elevated risk for reflux aspiration. GI consult is recommended. Penetration/Aspiration Scale (PAS)*: All consistencies: Score of 1, Material does not enter airway *(Aisha et al. 1996) SUMMARY and RECOMMENDATIONS Aspiration Risk: Mild. Negative prognostic indicators include cognitive deficits with oral bolus holding, risk of seizure during PO intake, and suspected esophageal dysphagia. Dysphagia Outcome Severity Scale: Level 6; modified [place] Speech Therapy Need: Skilled ST interventions are no longer warranted for dysphagia. RECOMMENDATIONS 1. Diet: Regular, thin liquids. 2. Medications: Whole, one at a time, ok with thin liquids. 3. Compensatory Techniques: regular oral hygiene, upright positioning during PO intake, provide lidded vessels for liquids to avoid spills, slow rate of intake, take rest breaks for respiration if shortness of breath is observed, cease PO if pt appears to be seizing 4. Supervision with meals/snacks: provide tray set-up, support self-feeding as needed, monitor diet tolerance, potential seizing, respiration 5. GI consult POC 1. The patient will participate in a modified barium swallow study to objectively analyze oropharyngeal swallow and assist in establishing recommendations for potential diet modification needs, compensatory strategies, and maneuvers to support safe tolerance of least restrictive diet with minimized risk for respiratory compromise. MET. Safe for regular diet, thin liquids, general aspiration precautions. Please call [phone] with any questions or concerns. Respectfully, Ayana Cuellar M.S., [facility] SELECT[facility] Speech Therapist [*] FERNY
[2018-08-01 12:39] VITALS: BP 110/78
--- NOTE | 2018-08-01 12:41 | RADIOLOGY IMAGING REPORT ---
[place] [facility] [place] Aury Mckeon : 1995 MR: [id number] V: [id number] EXAM DATE: [id number] ORDERING PHYSICIAN: STANLEY PARR TECHNOLOGIST: Location: [facility] [place] Patient: Aury Mckeon : 1995 Visit/Account:[id number] Date of Sevice: 07/31/2018 ESOPH VIDEO SWALLOWING HISTORY: recurrent right sided pneumonia FINDINGS: MODIFIED barium swallow was performed with the speech pathologist and radiologist both in attendance. Patient administered various barium consistencies of thin, puree solid, soft solid, regular solid a nd barium pill. There is mild dysphasia with all consistencies. There was a consistent residual of ingested material in the upper third aspect of the thoracic esophagus which would peristalse distally with additional swallowing maneuvers. IMPRESSION: Modified barium swallow was described. Please refer to the speech pathologist report for complete el ucidation. Fluoroscopic time of 2.6 minutes. AK 28.1mGy DAP 691.77 uGym2 Report Dictated By: Juan Ren MD at 08/01/2018 12:32 PM Report E-Signed By: Juan Ren MD at 08/01/2018 12:37 PM WSN:AWA
[2018-08-01] MEDS ORDERED: cefTRIAXone 1 GM VIAL IVP SCH (13:00)
[2018-08-01 15:14] VITALS: BP 110/78
--- NOTE | 2018-08-01 16:09 | Hospitalist Progress Note ---
Subjective Progress Notes Subjective 22F admitted for pneumonia. LILLIAN overnight, improving slowly. Patient Complains of: Respiratory: No: Cough, Shortness of Breath Physical Exam Vital Signs Date Time Temp Pulse Resp B/P (MAP) Pulse Ox O2 Delivery O2 Flow Rate FiO2 08/01/18 15:14 98.9 109 22 110/78 (89) 95 Room Air Intake and Output 08/01/18 07:00 Intake Total 960 ml Balance 960 ml Intake Oral 960 ml # Voids 1 General Appearance: Awake, No Acute Distress, Afebrile Neuro: No Gross deficits ENT: Normal Cardiovascular: Normal Rhythm & Peripheral Pulses Respiratory: No Respiratory Distress Result Diagram: 08/01/1852108/01/18521 Assessment and Plan Problems: (1) Pneumonia Status: Acute Assessment & Plan: She presented with one day of shallow breathing and decreased energy. She has a multifocal pneumonia that appears worse in the RUL. She is afebrile, on RA, and has a normal WBC. Last 3 months, she has been on 3 courses antibiotics (Z-pac, Augmentin, and Levofloxacin) for URI, sinusitis and RLL pneumonia. She was diagnosed with influenza A last week, but didn't get treatment. She has been started on Rocephin and Doxycycline converted to PO cefdinir and doxycycline in anticipation of discharge. Swallow study no overt aspiration, mild slowing of swallow. Will observe on PO antibiotics and discharge tomorrow if stable. (2) Seizure Status: Chronic Assessment & Plan: Long standing and still having seizures regularly. Continue chronic Keppra, Lamictal, Zonegran, Clonazepam and Hemp Oil. She has a functioning vagal nerve stimulator. (3) ADHD (attention deficit hyperactivity disorder) Status: Chronic Assessment & Plan: Continue chronic Strattera and Concerta. (4) Development delay Status: Chronic Assessment & Plan: Continue chronic Prozac and Seroquel for behavior issues. Exam Sepsis Risk: Sepsis Risk SWATHI KEATING DO Aug 01, 2018 16:09
[2018-08-01 19:51] VITALS: BP 106/72
[2018-08-01] MEDS: MEDROXYPROGESTERONE PO SCH (20:39)
[2018-08-01] MEDS: ESTROGENS CONJUGATED PO SCH (20:39)
[2018-08-01] MEDS: CETIRIZINE HCL 10 MG TAB PO SCH (20:43)
[2018-08-01] MEDS: CEFDINIR 300 MG CAP PO SCH (20:44)
[2018-08-01] MEDS: LEVOTHYROXINE SOD 0.075 MG TAB PO SCH (20:46)
[2018-08-01] MEDS: DOXYCYCLINE HYCL 100 MG TAB PO SCH (20:47)
[2018-08-02 03:35] VITALS: BP 104/74
[2018-08-02 07:12] VITALS: BP 106/68
[2018-08-02] MEDS: PATIENT'S OWN MED PO SCH (09:00)
[2018-08-02] MEDS: FLUoxetine HCL 20 MG CAP PO SCH (09:31)
[2018-08-02] MEDS: METHYLPHENIDATE 27 MG TABER PO SCH (09:31)
[2018-08-02] MEDS: DOXYCYCLINE HYCL 100 MG TAB PO SCH (09:32)
[2018-08-02] MEDS: clonazePAM 1 MG TAB PO SCH (09:32)
[2018-08-02] MEDS: lamoTRIgine 100 MG TAB PO SCH (09:32)
[2018-08-02] MEDS: levETIRAcetam 500 MG TAB PO SCH (09:32)
[2018-08-02] MEDS: CEFDINIR 300 MG CAP PO SCH (09:32)
[2018-08-02] MEDS: guaiFENesin 600 MG TABCR PO SCH (09:32)
[2018-08-02] MEDS: ZONISAMIDE 100 MG CAP PO SCH (09:33)
[2018-08-02] MEDS ORDERED: CEF300 PO (09:34)
[2018-08-02] MEDS ORDERED: DOXY-179 PO (09:34)
--- NOTE | 2018-08-02 09:37 | Hospitalist Depart ---
Discharge Summary Reason for Hosp/Final Diag: (1) Pneumonia Status: Acute Hospital Course & Plan: She presented with one day of shallow breathing and decreased energy. She has a multifocal pneumonia that appears worse in the RUL. She is afebrile, on RA, and has a normal WBC. Last 3 months, she has been on 3 courses antibiotics (Z-pac, Augmentin, and Levofloxacin) for URI, sinusitis and RLL pneumonia. She was diagnosed with influenza A last week, but didn't get treatment. She has been started on Rocephin and Doxycycline converted to PO cefdinir and doxycycline in anticipation of discharge. Swallow study no overt aspiration, mild slowing of swallowing. [place] [facility] [place] (2) Seizure Status: Chronic Hospital Course & Plan: Long standing and still having seizures regularly. Continue chronic Keppra, Lamictal, Zonegran, Clonazepam and Hemp Oil. She has a functioning vagal nerve stimulator. (3) ADHD (attention deficit hyperactivity disorder) Status: Chronic Hospital Course & Plan: Continue chronic Strattera and Concerta. (4) Development delay Status: Chronic Hospital Course & Plan: Continue chronic Prozac and Seroquel for behavior issues. Departure Latest Vital Signs Vital Signs 08/02/18 07:12 Temp 98.5 Pulse 113 Resp 22 B/P (MAP) 106/68 (81) Pulse Ox 91 O2 Delivery Room Air Weight (Pounds): 90 Weight (Ounces): 12.0 Result Diagram: 08/01/1852108/01/18521 Condition: Improved Discharge: Home, Self Care Discharge Instructions Home Meds Active Scripts Doxycycline Hyclate (DOXYCYCLINE HYCLATE) 100 Mg Tablet, 100 MG PO BID, #10 TAB Prov:JABARI SALAS GEOCHEMIST 08/02/18 Cefdinir 300 Mg Cap (OMNICEF 300 MG CAP (OR EQUIV)) 300 Mg Cap, 300 MG PO BID, #10 CAP Prov:AJBARI SALAS GEOCHEMIST 08/02/18 Methylphenidate Hcl (CONCERTA) 54 Mg Tab.er.24, 1 TAB PO QAM, #30 TAB 0 Refills Prov:MATEUSZ PERRY DNP, [facility]-BC 07/30/18 Fluoxetine Hcl (PROZAC) 10 Mg Capsule, 4 TAB PO QAM, #360 CAPSULE 4 Refills Prov:MATEUSZ PERRY DNP, FNP-MAIKOL 06/04/18 Atomoxetine Hcl (STRATTERA) 40 Mg Capsule, 1 TAB PO DAILY, #90 CAPSULE 1 Refill Prov:MATEUSZ PERRY DNP, FNP-MAIKOL 03/09/18 Reported Medications Quetiapine Fumarate (SEROQUEL) 25 Mg Tablet, 25 MG PO HS 07/24/18 Cetirizine Hcl (ZYRTEC) 10 Mg Capsule, 10 MG PO HS, CAPSULE 01/31/17 Estrogen,Con/M-Progest Acet (PREMPHASE 0.625-5 MG TABLET) 1 Each Tablet, 1 EACH PO HS 01/31/17 Levothyroxine Sodium (LEVOTHYROXINE SODIUM) 75 Mcg Tablet, 62.5 MCG PO HS, TAB 01/31/17 Levetiracetam (KEPPRA) 500 Mg Tablet, 1 TAB PO BID, TAB 01/27/16 Clonazepam (CLONAZEPAM) 1 Mg Tablet, 1 TAB PO BID, TAB 1 tab PO BID and PRN 01/27/16 [Hempoil] No Conflict Check, 150 MG PO BID 03/17/15 Zonisamide (Zonegran) 100 Mg Capsule, 300 MG PO BID, 0 Refills 04/21/11 Lamotrigine (Lamictal) 100 Mg Tab, 150 MG PO BID, #20 0 Refills 04/21/11 Discontinued Scripts Levofloxacin 750 Mg Tab (LEVOFLOXACIN 750 MG TAB) 750 Mg Tablet, 1 TAB PO QDAY for 5 Days, #5 TAB 0 Refills Prov:MATEUSZ PERRY DNP, FNP-MAIKOL 06/22/18 Diet: Regular Activity: As Tolerated Special Instructions: Take antibiotics as prescribed. Follow up in one week with primary care provider. Copies to: MATEUSZ PERRY DNP, FNP-MAIKOL ; Venous Thromboembolism Antithrombotics Is Pt On Any Antithrombotics?: No JABARI SALAS Aug 02, 2018 09:37
== END 2018-08-02 11:20 | disposition home or self-care (01) | DRG 194 ==
LOC: ER 10:12 → MED 13:08
PROVIDERS: ADMIT Internal Medicine; ATTEND Internal Medicine
DX: J18.9 Pneumonia, unspecified organism (principal); Q23.1 Congenital insufficiency of aortic valve; F84.0 Autistic disorder; G40.909 Epilepsy, unspecified, not intractable, without status epilepticus; F90.9 Attention-deficit hyperactivity disorder, unspecified type; E03.9 Hypothyroidism, unspecified; Q96.9 Turner's syndrome, unspecified; Z90.710 Acquired absence of both cervix and uterus
CPT/HCPCS: 36415; 71046; 74230; 82040; 82247; 82310; 82374; 82435; 82565; 82947; 83605; 84075; 84132; 84155; 84295; 84450; 84460; 84520; 85025; 87040; 87502; 96365; 99284; A9270; J0696; J3490; J7030; J7050

== ENCOUNTER → 2018-08-10 | Outpatient (CLI) | payer OTHER, MEDICAID ==
[~2018-08-10] MED LIST changes: +CEF300 PO; +DOXY-179 PO
--- NOTE | 2018-08-10 09:28 | RADIOLOGY IMAGING REPORT ---
FACILITY: [facility] - [place] PATIENT NAME: Aury Mckeon : 1995 MR: [id number] V: [id number] EXAM DATE: ORDERING PHYSICIAN: MATEUSZ PERRY TECHNOLOGIST: Location: [facility] [place] Patient: Aury Mckeon : 1995 Visit/Account:[id number] Date of Sevice: 08/10/2018 2 VIEWS CHEST INDICATION: F/U pneumonia COMPARISON: July 31, 2018 FINDINGS: Cardiomediastinal silhouette: Stable heart size. Cardiac device again noted. The device obscures a large portion of the left hemithorax. Lungs: Overall previously noted right greater than left interstitial and airspace disease has slightl y diminished. No new pulmonary parenchymal abnormalities. Underlying emphysematous changes noted. There is no pneumothorax or pleural effusion. Bones and soft tissues: Stable IMPRESSION: 1. Slight improvement of diffuse bilateral interstitial and airspace disease. Report Dictated By: Austin Juarez MD at 08/10/2018 9:22 AM Report E-Signed By: Austin Juarez MD at 08/10/2018 9:23 AM WSN:[id number]
== END ==
LOC: RAD 08:50
PROVIDERS: ATTEND Nurse Practitioner Primary Care
DX: J18.9 Pneumonia, unspecified organism (principal)
CPT/HCPCS: 71046

== ENCOUNTER → 2018-09-26 | Outpatient (CLI) | payer OTHER, MEDICAID ==
[2018-09-26 16:46] LABS: PLATELET COUNT, AUTOMATED 326 K/uL (150-450)
--- NOTE | 2018-09-26 17:09 | RADIOLOGY IMAGING REPORT ---
FACILITY: [facility] - [place] PATIENT NAME: Aury Mckeon : 1995 MR: [id number] V: [id number] EXAM DATE: ORDERING PHYSICIAN: MATEUSZ PERRY TECHNOLOGIST: Location: [facility] - [place] Patient: Aruy Mckeon : 1995 Visit/Account:[id number] Date of Sevice: 09/26/2018 EXAMINATION: Chest 2 Views HISTORY: Cough. COMPARISON: 08/10/2018. FINDINGS: Patchy infiltrate throughout the mid and lower right lung is suspicious for pneumonia. Overall aerat ion of the right lung appears improved from the prior exam. This may represent persistent or recurre nt disease in the lower right lung. The left lung is clear. No pleural effusion or pneumothorax. Normal cardiomediastinal silhouette. A donor stimulator projects over the left chest. No new osseous findings. IMPRESSION: Improved aeration of the lungs in comparison to the prior exam. Patchy infiltrate in the mid and low er right lung may represent persistent or recurrent pneumonitis. Report Dictated By: Jose Bryan MD at 09/26/2018 5:03 PM Report E-Signed By: Jose Bryan MD at 09/26/2018 5:05 PM WSN:[id number]
== END ==
LOC: RAD 16:28
PROVIDERS: ATTEND Nurse Practitioner Primary Care
DX: R05 Cough (principal)
CPT/HCPCS: 36415; 71046; 82040; 82247; 82310; 82374; 82435; 82565; 82947; 84075; 84132; 84155; 84295; 84450; 84460; 84520; 85025

== ENCOUNTER 2018-12-18 20:19 | Emergency (ER) | payer OTHER, MEDICAID ==
--- NOTE | 2018-12-18 20:24 | ER Report ---
History and Physical Time Seen By MD: 20:20 HPI/ROS CHIEF COMPLAINT: scalp laceration HISTORY OF PRESENT ILLNESS: This is a 23 year old female. She had a drop seizure. Fell and hit back of head on sewing machine. No loss of consciousness. Acting normally. No vomiting. Allergies: Coded Allergies: No Known Drug Allergies (Verified , 12/18/18) Home Meds Active Scripts Methylphenidate Hcl (CONCERTA) 54 Mg Tab.er.24, 1 TAB PO QAM, #30 TAB 0 Refills Prov:MATEUSZ PERRY DNP, [facility] 11/23/18 Atomoxetine Hcl (STRATTERA) 40 Mg Capsule, 1 TAB PO DAILY, #90 CAPSULE 1 Refill Prov:MATEUSZ PERRY DNP, [facility] 09/27/18 Cefdinir 300 Mg Cap (OMNICEF 300 MG CAP (OR EQUIV)) 300 Mg Cap, 1 TAB PO BID for 10 Days, #20 CAP 0 Refills Prov:MATEUSZ PERRY DNP, [facility] 09/26/18 Fluoxetine Hcl (PROZAC) 10 Mg Capsule, 4 TAB PO QAM, #360 CAPSULE 4 Refills Prov:MATEUSZ PERRY DNP, [facility]- 06/04/18 Reported Medications Quetiapine Fumarate (SEROQUEL) 100 Mg Tablet, 100 MG PO QHS 12/18/18 Cetirizine Hcl (ZYRTEC) 10 Mg Capsule, 10 MG PO HS, CAPSULE 01/31/17 Estrogen,Con/M-Progest Acet (PREMPHASE 0.625-5 MG TABLET) 1 Each Tablet, 1 EACH PO HS 01/31/17 Levothyroxine Sodium (LEVOTHYROXINE SODIUM) 75 Mcg Tablet, 62.5 MCG PO HS, TAB 01/31/17 Levetiracetam (KEPPRA) 500 Mg Tablet, 1 TAB PO BID, TAB 01/27/16 Clonazepam (CLONAZEPAM) 1 Mg Tablet, 1 TAB PO BID, TAB 1 tab PO BID and PRN 01/27/16 [Hempoil] No Conflict Check, 150 MG PO BID 03/17/15 Zonisamide (Zonegran) 100 Mg Capsule, 300 MG PO BID, 0 Refills 04/21/11 Lamotrigine (Lamictal) 100 Mg Tab, 150 MG PO BID, #20 0 Refills 04/21/11 Discontinued Reported Medications Quetiapine Fumarate (SEROQUEL) 25 Mg Tablet, 25 MG PO HS 07/24/18 Reviewed Nurses Notes: Yes Hx Smoking: No Smoking Status: Never Smoker Exposure to Second Hand Smoke?: No Hx Substance Use Disorder: No Hx Alcohol Use: No Constitutional Vital Sign - Last 24 Hours 12/18/18 12/18/18 12/18/18 12/18/18 20:23 20:24 20:29 20:30 Temp 97.8 Pulse 99 100 98 Resp 16 B/P (MAP) 141/110 124/102 (109) Pulse Ox 98 91 97 12/18/18 12/18/18 12/18/18 12/18/18 20:34 20:39 20:44 20:49 Pulse 99 102 97 102 Pulse Ox 99 100 97 96 12/18/18 12/18/18 20:54 20:59 Pulse 97 Pulse Ox 93 96 Physical Exam General: alert, normal level of alertness. Eyes: Pupils reactive to light, equal and round. Neuro: Alert, no abnormal behavior, normal interaction. Skin: About 3cm scalp laceration superior occipital scalp Medical Decision Making ED Course/Re-evaluation ED Course Procedure: Laceration Repair Verbal consent from patient's parents after discussing repair options, risks and benefits. Wound cleaned extensively with Hibiclens and saline. Anesthesia: None. Location: Superior occipital scalp. Length: 3 cm. Wound repair: 3 sasha. The wound repair was simple and performed by our nurse practitioner student. Wound care instructions discussed. Sasha need to be removed in 7 days. Tetanus booster given. Decision to Disposition Date: Dec 18, 2018 Decision to Disposition Time: 20:50 Depart Departure Latest Vital Signs Vital Signs Date Time Temp Pulse Resp B/P (MAP) Pulse Ox O2 Delivery O2 Flow Rate FiO2 12/18/18 20:59 96 12/18/18 20:54 97 12/18/18 20:30 124/102 (109) 12/18/18 20:23 97.8 16 Impression: Primary Impression: Scalp laceration Condition: Improved Disposition: HOME OR SELF-CARE Referrals: MATEUSZ PERRY DNP, [employer]-BC (PCP) Patient Instructions: Staple Care (ED) Additional Instructions: Wound Care: Wash the wound once a day with soap/shampoo and water. No swimming. Jenkinjones need to be removed in 7 days. Pain Control: Use Tylenol or ibuprofen for pain. Using and ice pack can help reduce swelling. Problem Qualifiers Primary Impression: Scalp laceration Encounter type: initial encounter Qualified Codes: S01.01XA - Laceration without foreign body of scalp, initial encounter BALDOMERO ALEXIS MD Dec 18, 2018 20:24
[2018-12-18] MEDS ORDERED: QUET100T29 PO (20:27)
[2018-12-18 20:30] VITALS: BP 124/102
[2018-12-18] MEDS ORDERED: DIPHTH/TETANUS/ACEL. PERTUSSIS IM ONLY ONE (20:45)
[2018-12-21] MEDS ORDERED: METH54TA12 PO (08:08)
== END 2018-12-18 21:01 | disposition home or self-care (01) ==
LOC: ER 20:32
DX: S01.01XA Laceration without foreign body of scalp, initial encounter (principal)
CPT/HCPCS: 90471; 90715; 99283